=== PATIENT | female | born 1945 | race Caucasian/White ===

== ENCOUNTER 2019-02-13 16:36 | Emergency (ER) | payer MEDICARE, BC ==
--- NOTE | 2019-02-13 16:52 | Emergency Department Record ---
History of Present Illness - General Chief Complaint: Fall Injury Stated Complaint: FALL/LT ARM PAIN Time Seen by Provider: 02/13/19 16:51 Source: Patient, RN notes reviewed - History of Present Illness Initial Comments: fell 60 minutes ago on the outstretched arm. No other injuries MD Complaint: Fall Onset/Timin -: Hour(s) - Related Data Home Medications Medication Instructions Recorded Confirmed Last Taken Aspirin [Aspir-Low] 81 mg PO DAILY 02/13/19 02/13/19 02/13/19 Cholecalciferol (Vitamin D3) 50 mcg PO DAILY 02/13/19 02/13/19 02/13/19 [Vitamin D3] Gabapentin 300 mg PO BID 02/13/19 02/13/19 02/13/19 Levothyroxine Sodium [Synthroid] 50 mcg PO DAILY 02/13/19 02/13/19 02/13/19 Losartan Potassium 100 mg PO DAILY 02/13/19 02/13/19 02/13/19 Metoprolol Succinate 100 mg PO DAILY 02/13/19 02/13/19 02/13/19 Mometasone Furoate 1 spray EACH NARES DAILY 02/13/19 02/13/19 02/13/19 Montelukast Sodium 10 mg PO DAILY 02/13/19 02/13/19 02/13/19 Omeprazole 40 mg PO DAILY 02/13/19 02/13/19 02/13/19 Sertraline HCl [Zoloft] 100 mg PO DAILY 02/13/19 02/13/19 02/13/19 Trazodone HCl [Desyrel] 50 mg PO QHS 02/13/19 02/13/19 02/12/19 Allergies Allergy/AdvReac Type Severity Reaction Status Date / Time Sulfa (Sulfonamide Allergy BLISTERS Verified 02/13/19 16:44 Antibiotics) Review of Systems Reviewed: No additional complaints except as noted below Constitutional: Reports: As per HPI. Denies: Chills, Fever, Malaise, Night sweats, Weakness, Weight change Eyes: Reports: As per HPI. Denies: Eye discharge, Eye pain, Photophobia, Vision change ENT: Reports: As per HPI. Denies: Congestion, Dental pain, Ear pain, Epistaxis, Hearing loss, Throat pain Respiratory: Reports: As per HPI. Denies: Cough, Dyspnea, Hemoptysis, Stridor, Wheezes Cardiovascular: Reports: As per HPI. Denies: Arrhythmia, Chest pain, Dyspnea on exertion, Edema, Murmurs, Orthopnea, Palpitations, Paroxysmal nocturnal dyspnea, Rheumatic Fever, Syncope Endocrine: Reports: As per HPI. Denies: Fatigue, Heat or cold intolerance, Polydipsia, Polyuria Gastrointestinal: Reports: As per HPI. Denies: Abdominal pain, Constipation, Diarrhea, Hematemesis, Hematochezia, Melena, Nausea, Vomiting Genitourinary: Reports: As per HPI. Denies: Abnormal menses, Discharge, Dyspareunia, Dysuria, Frequency, Hematuria, Incontinence, Retention, Urgency Musculoskeletal: Reports: As per HPI, Other (left elbow pain). Denies: Arthralgia, Back pain, Gout, Joint swelling, Myalgia, Neck pain Skin: Reports: As per HPI. Denies: Bruising, Change in color, Change in hair/nails, Lesions, Pruritus, Rash Neurological: Reports: As per HPI. Denies: Abnormal gait, Confusion, Headache, Numbness, Paresthesias, Seizure, Tingling, Tremors, Vertigo, Weakness Psychiatric: Reports: As per HPI. Denies: Anxiety, Auditory hallucinations, Depression, Homicidal thoughts, Suicidal thoughts, Visual hallucinations Hematological/Lymphatic: Reports: As per HPI. Denies: Anemia, Blood Clots, Easy bleeding, Easy bruising, Swollen glands Physical Exam - General General Appearance: Alert, Oriented x3, Cooperative, No acute distress - Head Head exam: Normal inspection - Eye Eye exam: Normal appearance, PERRL Pupils: Normal accommodation - ENT ENT exam: Normal exam, Mucous membranes moist, Normal external ear exam, Normal orophraynx, TM's normal bilaterally Ear exam: Normal external inspection. negative: External canal tenderness Nasal Exam: Normal inspection. negative: Discharge, Sinus tenderness Mouth exam: Normal external inspection, Tongue normal Teeth exam: Normal inspection. negative: Dental caries Throat exam: Normal inspection. negative: Tonsillar erythema, Tonsillar exudate - Neck Neck exam: Normal inspection, Full ROM. negative: Tenderness - Respiratory Respiratory exam: Normal lung sounds bilaterally. negative: Respiratory distress - Cardiovascular Cardiovascular Exam: Regular rate, Normal rhythm, Normal heart sounds - GI/Abdominal GI/Abdominal exam: Soft, Normal bowel sounds. negative: Tenderness - Rectal Rectal exam: Deferred - exam: Deferred - Extremities Extremities exam: Normal capillary refill, Tenderness (left elbow pain and swolen with ecchymosis), Other (pulses are good and neuro is intact in the arm ) - Back Back exam: Reports: Normal inspection, Full ROM. Denies: Muscle spasm, Rash noted, Tenderness - Neurological Neurological exam: Alert, Normal gait, Oriented X3, Reflexes normal - Psychiatric Psychiatric exam: Normal affect, Normal mood - Skin Skin exam: Dry, Intact, Normal color, Warm Course - Reevaluation(s) Reevaluation #1: 02/13/19 18:[address] Card at [facility] and will transfer to the emergency department. Reevaluation #2: splint applied and Neurovascular is intact 02/13/19 18:42 Medical Decision Making - Data Complexity MDM Data: X-Ray Ordered and/or Reviewed (fracture dislocation of the elbow) Disposition Clinical Impression: Fracture dislocation of elbow joint Qualifiers: Encounter type: initial encounter Fracture type: closed Laterality: left Qual ified Code(s): S42.402A - Unspecified fracture of lower end of left humerus, initial encounter for closed fracture Disposition: Acute Care Hospital Transfer Condition: (2) Stable Instructions: Elbow Fracture (ED) Additional Instructions: Go to [facility] emergency department to see Dr Card and Dr Cook at [facility] ED nothing to eat or drink Forms: Patient Portal Access Time of Disposition: 18:39 Quality - Quality Measures Quality Measures: N/A - Blood Pressure Screening Does Patient Have Any of the Following: No, Active Dx of HTN Blood Pressure Classification: Hypertensive Reading Systolic Measurement: 157 Diastolic Measurement: 63 Screening for High Blood Pressure: Patient Exclusion, Hx of HTN [[id number]]
[2019-02-13] MEDS: MORPHINE SULFATE 5 MG/ML VIAL IVP ONE ×2 (18:13→19:12)
--- NOTE | 2019-02-13 18:24 | RADIOLOGY REPORT ---
EXAMINATION: Left Elbow EXAM DATE: 02/13/2019 5:47 PM INDICATION: fall ENCOUNTER: Initial FINDINGS: There is dislocation of both the radius and ulna from the humerus, with posterior displace ment and overriding of the bones. Small ossific densities are seen along the lateral aspect of the kaylah int, possible small fracture fragments. There is extensive soft tissue swelling. Dictated by: Jeff Lutz MD on 02/13/2019 6:20 PM. .
== END 2019-02-13 18:56 | disposition short-term general hospital (02) ==
LOC: ER 16:36
DX: S42.402A Unspecified fracture of lower end of left humerus, initial encounter for closed fracture (principal); I10 Essential (primary) hypertension; E03.9 Hypothyroidism, unspecified; W18.30XA Fall on same level, unspecified, initial encounter
CPT/HCPCS: 96374; 96376; 99285